=== PATIENT | female | born 1990 | race Two or more races ===

== ENCOUNTER 2016-10-16 07:21 | Emergency (ER) | payer SELFPAY ==
[2016-10-16 08:02] LABS: CHLORIDE,CL 102 mEq/L (98-106); SODIUM,NA 141 mEq/L (136-145)
[2016-10-16] MEDS ORDERED: Alum Hydrox/Mag Hydrox/Simeth 30 ML, Lidocaine 2% 15 ML PO ONE ×2 (08:20)
[2016-10-16] MEDS ORDERED: Ketorolac 60 MG/2 ML SDV IM ONE (08:25)
[2016-10-16] MEDS ORDERED: fentaNYL 100 MCG/2 ML SDV IM ONE (09:37)
--- NOTE | 2016-10-16 09:43 | EDM.PDOC ---
ED HPI GI/ABDOMINAL - General Chief Complaint: Abdominal Pain Stated Complaint: SEVERE ABD PAIN Time Seen by Provider: 10/16/16 08:03 Source of Information: Reports: Patient History Limitations: Reports: No limitations - History of Present Illness INITIAL COMMENTS - FREE TEXT/NARRATIVE: Comes in complaining of lower right and left abdominal pain. worse on the left. Describes it as cramping and severe. Also has midepigastric area pain. "I've had gastritis in the past". Feels that the pain in the lower right abdomen is the worst. Has not had a period for over a year. Had been on depo provera about 5 years ago and periods have been irregular since then. Denies any vaginal discharge or pain. Doesn't feel like she has had any contact with STI. No pain with urination. Does feel nauseated but no vomiting. Pain started between 1-3 am this morning and has become worse. Has not had a bowel movement today. Did have one yesterday. States that they have been firm and small but she doesn't feel constipated. Has had a previous appy Was fine yesterday. Symptom Onset Date: 10/16/16 Timing/Duration: Reports: Hour(s): Location: other (mid epigastric) Quality: Reports: cramping, stabbing Associated Symptoms (-Female): Reports: constipation, nausea/vomiting. Denies : diarrhea, fever/chills - Related Data Allergies/ADRs: Allergies Allergy/AdvReac Type Severity Reaction Status Date / Time azithromycin Allergy Vomiting Verified 10/16/16 07:47 Home Meds: Home Meds . [No Known Home Meds] 10/16/16 [History] Past Medical History - Past Surgical History HEENT Surgical History: Reports: Adenoidectomy, Tonsillectomy GI Surgical History: Reports: Appendectomy Social & Family History - Tobacco Use Smoking Status *Q: Current Every Day Smoker Years of Tobacco use: 8 Packs/Tins Daily: 0.2 - Caffeine Use Caffeine Use: Reports: Coffee, Soda - Recreational Drug Use Recreational Drug Use: No ED ROS GENERAL - Review of Systems Review Of Systems: See Below Constitutional: Denies: fever HEENT: Reports: No symptoms Respiratory: Reports: no symptoms Cardiovascular: Reports: No symptoms GI/Abdominal: Reports: Constipation (Has been taking Miralax for about a week.) , Other (see HPI) : Denies: dysuria, hematuria Musculoskeletal: Denies: back pain Skin: Denies: rash Neurological: Reports: no symptoms ED EXAM, GI/ABD - Physical Exam Exam: See Below Exam Limited By: No limitations General Appearance: alert, moderate distress Eyes: bilateral: normal appearance Ears: normal external exam, normal canal, normal TMs Throat/Mouth: Normal inspection, Normal oropharynx, No airway compromise Head: atraumatic, normocephalic Neck: normal inspection, supple, non-tender, full range of motion Respiratory/Chest: no respiratory distress, lungs clear, normal breath sounds Cardiovascular: regular rate, rhythm, no edema, no murmur GI/Abdominal: normal bowel sounds, other (abdomen is tender to the right and left lower quadrants with increase cramping pain at times. Some midepigastric pain with palpation.) (Female) Exam: Normal external exam, Normal speculum exam, Normal bimanual exam, Other (ALLIE, WET prep, GC/chlamydia, culture done.). No: Cervical discharge, Cervix motion tenderness, Enlarged uterus, Uterine tenderness, Vaginal discharge Back Exam: normal inspection, full range of motion Extremities: normal inspection, normal range of motion, no pedal edema, normal capillary refill Neurological: alert, oriented Psychiatric: normal affect Skin Exam: Warm, Dry, Intact, No rash Course - Vital Signs Last Recorded V/S: Last Vital Signs Temp 98.0 F 10/16/16 12:30 Pulse 92 10/16/16 12:30 Resp 16 10/16/16 12:30 BP 135/69 10/16/16 12:30 Pulse Ox 97 10/16/16 12:30 - Orders/Labs/Meds Orders: Active Orders 24 hr Category Date Time Status Enema [RC] ASDIRECTED Care 10/16/16 09:37 Active Abdomen Pelvis w Cont [CT] Stat Exams 10/16/16 10:56 Taken Transvaginal Non OB [US] Stat Exams 10/16/16 08:23 Taken CHLAMYDIA/GC NUCLEIC ACID AMP [MREF] Routine Lab 10/16/16 08:25 Received CULTURE GENITAL [RM] Stat Lab 10/16/16 08:21 Ordered Ondansetron [Zofran] Med 10/16/16 11:40 Active 4 mg IVPUSH Q6H PRN Medication Orders Ondansetron HCl (Zofran) 4 mg IVPUSH Q6H PRN PRN Reason: Nausea Last Admin: 10/16/16 11:45 Dose: 4 mg Labs: Laboratory Tests 10/16/16 10/16/16 10/16/16 Range/Units 07:42 07:45 07:45 WBC 10.6 H (5.0-10.0) 10^3/uL RBC 4.22 (4.00-5.50) 10^6/uL Hgb 12.5 (12.0-16.0) g/dL Hct 36.7 L (37.0-47.0) % MCV 87.0 (82.0-94.0) fL MCH 29.6 (27.0-32.0) pg MCHC 34.1 (33.0-38.0) g/dL RDW Coeff of [place] 13.1 (11.0-15.0) % Plt Count 265 (150-400) 10^3/uL Neut % (Auto) 59.0 (35-85) % Lymph % (Auto) 30.8 (10-55) % [place] % (Auto) 9.3 (0-16) % Eos % (Auto) 0.8 (0-5) % Baso % (Auto) 0.1 (0-3) % Neut # 6.26 (1.80-7.00) 10^3/uL Lymph # 3.26 (1.00-4.80) 10^3/uL [place] # 0.98 H (0.00-0.80) 10^3/uL Eos # 0.08 (0.00-0.45) 10^3/uL Baso # 0.01 10^3/uL Sodium (136-145) mEq/L Potassium (3.5-5.0) mEq/L Chloride (98-106) mEq/L Carbon Dioxide (21-32) mmol/L BUN (7-18) mg/dL Creatinine (0.6-1.0) mg/dL Est Cr Clr Drug Dosing mL/min Estimated GFR (MDRD) (>=60) mL/min Glucose (75-99) mg/dL Calcium (8.4-10.1) mg/dL Total Bilirubin (0.0-1.0) mg/dL AST (15-37) U/L ALT (12-78) U/L Alkaline Phosphatase (46-116) U/L Total Protein (6.4-8.2) g/dL Albumin (3.4-5.0) g/dL Urine Color Yellow (YELLOW) Urine Appearance Clear (CLEAR) Urine pH 6.0 (4.5-8.0) Ur Specific [place] 1.033 H (1.003-1.020) Urine Protein Trace H (NEGATIVE) mg/dL Urine Glucose (UA) Negative (NEGATIVE) mg/dL Urine Ketones Negative (NEGATIVE) mg/dL Urine Occult Blood Negative (NEGATIVE) Urine Nitrite Negative (NEGATIVE) Urine Bilirubin Negative (NEGATIVE) Urine Urobilinogen 1.0 (0.2-1.0) EU/dL Ur Leukocyte Esterase Negative (NEGATIVE) Urine RBC Not seen (0-5) /HPF Urine WBC Not seen (0-5) /HPF Ur Epithelial Cells Moderate H (NOT SEEN) /HPF Urine Mucus Few H (NOT SEEN) /HPF Urine HCG, Qual Negative 10/16/16 Range/Units 07:45 WBC (5.0-10.0) 10^3/uL RBC (4.00-5.50) 10^6/uL Hgb (12.0-16.0) g/dL Hct (37.0-47.0) % MCV (82.0-94.0) fL MCH (27.0-32.0) pg MCHC (33.0-38.0) g/dL RDW Coeff of [place] (11.0-15.0) % Plt Count (150-400) 10^3/uL Neut % (Auto) (35-85) % Lymph % (Auto) (10-55) % [place] % (Auto) (0-16) % Eos % (Auto) (0-5) % Baso % (Auto) (0-3) % Neut # (1.80-7.00) 10^3/uL Lymph # (1.00-4.80) 10^3/uL [place] # (0.00-0.80) 10^3/uL Eos # (0.00-0.45) 10^3/uL Baso # 10^3/uL Sodium 141 (136-145) mEq/L Potassium 3.6 (3.5-5.0) mEq/L Chloride 102 (98-106) mEq/L Carbon Dioxide 27 (21-32) mmol/L BUN 13 (7-18) mg/dL Creatinine 0.7 (0.6-1.0) mg/dL Est Cr Clr Drug Dosing 97.17 mL/min Estimated GFR (MDRD) > 60 (>=60) mL/min Glucose 87 (75-99) mg/dL Calcium 8.3 L (8.4-10.1) mg/dL Total Bilirubin 0.3 (0.0-1.0) mg/dL AST 21 (15-37) U/L ALT 31 (12-78) U/L Alkaline Phosphatase 49 (46-116) U/L Total Protein 8.0 (6.4-8.2) g/dL Albumin 3.6 (3.4-5.0) g/dL Urine Color (YELLOW) Urine Appearance (CLEAR) Urine pH (4.5-8.0) Ur Specific [place] (1.003-1.020) Urine Protein (NEGATIVE) mg/dL Urine Glucose (UA) (NEGATIVE) mg/dL Urine Ketones (NEGATIVE) mg/dL Urine Occult Blood (NEGATIVE) Urine Nitrite (NEGATIVE) Urine Bilirubin (NEGATIVE) Urine Urobilinogen (0.2-1.0) EU/dL Ur Leukocyte Esterase (NEGATIVE) Urine RBC (0-5) /HPF Urine WBC (0-5) /HPF Ur Epithelial Cells (NOT SEEN) /HPF Urine Mucus (NOT SEEN) /HPF Urine HCG, Qual Meds: Medications Generic Name Dose Route Start Last Admin Trade Name Freq PRN Reason Stop Dose Admin Ondansetron HCl 4 mg 10/16/16 11:40 10/16/16 11:45 Zofran IVPUSH 4 mg Q6H PRN Administration Nausea Discontinued Medications Generic Name Dose Route Start Last Admin Trade Name Freq PRN Reason Stop Dose Admin Al Hydroxide/Mg Hydroxide 30 0 ml 10/16/16 08:20 10/16/16 08:24 ml/ Lidocaine HCl 15 ml PO 10/16/16 08:21 45 ml ONETIME ONE Administration Fentanyl 25 mcg 10/16/16 09:37 10/16/16 09:41 Sublimaze IM 10/16/16 09:38 25 mcg ONETIME ONE Administration Iopamidol 100 ml 10/16/16 13:44 10/16/16 14:40 Isovue-300 (61%) IVPUSH 10/16/16 13:45 100 ml ONETIME ONE Administration Ketorolac Tromethamine 60 mg 10/16/16 08:25 10/16/16 08:31 Toradol IM 10/16/16 08:26 60 mg ONETIME ONE Administration Ondansetron HCl 4 mg 10/16/16 10:59 10/16/16 11:44 Zofran IM 10/16/16 11:00 Not Given NOW STA - Re-Assessments/Exams Free Text/Narrative Re-Assessment/Exam: 10/16/16 09:40 In to discuss that all labs are normal. waiting on GC/ chlamydia and culture Pelvic US shows normal ovaries and increase in stool throughout entire bowel Will medicate for pain as she is having increase in pain and then give SSE. 10/16/16 1100- US is negative. Will get ct abdomen and pelvis to evaluate further. Pt voices understanding. Dos have some nausea. Will give Zofran to help her tolerate the contrast for CT. 10/16/16 15:53 In to discuss the results of normal CT. Report shows an increase in stool but no other abnormalities. Will try magnesium citrate to get stools to move. Departure - Departure Time of Disposition: 15:56 Disposition: Home, Self-Care 01 Condition: good Clinical Impression: Constipation Qualifiers: Constipation type: slow transit constipation Qualified Code(s): K59.01 - Slow transit constipation Instructions: Constipation, Adult, [id number] Forms: ED Department Discharge Additional Instructions: get a bottle of magnesium citrate and take the whole bottle tonight. - Problem List & Annotations (1) Constipation SNOMED Code(s): 63564336 Code(s): K59.00 - CONSTIPATION, UNSPECIFIED Status: Acute Priority: High Current Visit: Yes Qualifiers: Constipation type: slow transit constipation Qualified Code(s): K59.01 - Slow transit constipation - Problem List Review Problem List Initiated/Reviewed/Updated: Yes - My Orders Last 24 Hours: My Active Orders 10/16/16 08:21 CULTURE GENITAL [RM] Stat 10/16/16 08:23 Transvaginal Non OB [US] Stat 10/16/16 08:25 CHLAMYDIA/GC NUCLEIC ACID AMP [MREF] Routine 10/16/16 09:37 Enema [RC] ASDIRECTED 10/16/16 10:56 Abdomen Pelvis w Cont [CT] Stat 10/16/16 11:40 Ondansetron [Zofran] 4 mg IVPUSH Q6H PRN - Assessment/Plan Last 24 Hours: My Active Orders 10/16/16 08:21 CULTURE GENITAL [RM] Stat 10/16/16 08:23 Transvaginal Non OB [US] Stat 10/16/16 08:25 CHLAMYDIA/GC NUCLEIC ACID AMP [MREF] Routine 10/16/16 09:37 Enema [RC] ASDIRECTED 10/16/16 10:56 Abdomen Pelvis w Cont [CT] Stat 10/16/16 11:40 Ondansetron [Zofran] 4 mg IVPUSH Q6H PRN
[2016-10-16] MEDS ORDERED: Ondansetron 4 MG/2 ML SDV IM STA (10:59)
[2016-10-16] MEDS ORDERED: Ondansetron 4 MG/2 ML SDV IVPUSH PRN (11:40)
[2016-10-16] MEDS ORDERED: Iopamidol 612 MG/ML 100 ML Bottle IVPUSH ONE (13:44)
[2016-10-16 15:25] VITALS: BP 135/69
== END 2016-10-16 16:05 | disposition home or self-care (01) ==
LOC: CC.ED 07:21
DX: K59.01 Slow transit constipation (principal); F17.210 Nicotine dependence, cigarettes, uncomplicated; Z88.1 Allergy status to other antibiotic agents; Z98.890 Other specified postprocedural states; Z90.49 Acquired absence of other specified parts of digestive tract
CPT/HCPCS: 36415; 74177; 76830; 80053; 81001; 81025; 85025; 87070; 87210; 87220; 87491; 87591; 96372; 96374; 99284; A9270; J1885; J2405; J3010; Q9967